=== PATIENT | female | born 1980 | race Two or more races ===

== ENCOUNTER 2025-02-21 08:18 | Emergency (ER) | payer OTHER ==
[~2025-02-21] VITALS: Ht 149.9 cm; Wt 61.2 kg
[2025-02-21] MEDS ORDERED: GUAIFENESIN 200 MG/10 ML BLIST.PACK PO STA (08:56)
[2025-02-21] MEDS ORDERED: GUAIFENESIN 200 MG/10 ML BLIST.PACK PO ONE (09:10)
== END 2025-02-21 10:16 | disposition home or self-care (01) ==
LOC: ER 08:19
DX: J10.1 Influenza due to other identified influenza virus with other respiratory manifestations (principal); B34.9 Viral infection, unspecified; Z20.822 Contact with and (suspected) exposure to COVID-19